=== PATIENT | female | born 1955 | race Caucasian/White ===

== ENCOUNTER 2021-10-25 23:55 | Emergency (ER) | payer BC ==
[~2021-10-25] VITALS: Ht 157.5 cm; Wt 79.4 kg
[2021-10-26] VITALS: BP 161/92
== END 2021-10-26 00:15 | disposition home or self-care (01) ==
LOC: ER 23:58
DX: S60.221A Contusion of right hand, initial encounter (principal); E11.9 Type 2 diabetes mellitus without complications; X58.XXXA Exposure to other specified factors, initial encounter; Y93.89 Activity, other specified; Y92.89 Other specified places as the place of occurrence of the external cause; Y99.8 Other external cause status

== ENCOUNTER 2023-01-17 09:36 | Emergency (ER) | payer BC ==
[~2023-01-17] VITALS: Ht 157.5 cm; Wt 81.2 kg
--- NOTE | 2023-01-17 10:00 | NUR ---
C/O FACE PAIN X 4 DAYS S/P COSMETIC PROCEDURE.
--- NOTE | 2023-01-17 10:15 | NUR ---
DR FLOR AT BEDSIDE FOR EVAL. AWAITING FOR HIS ORDERS
[2023-01-17 11:16] VITALS: BP 130/66
== END 2023-01-17 11:17 | disposition home or self-care (01) ==
LOC: ER 09:39
DX: R51.9 Headache, unspecified (principal); E11.9 Type 2 diabetes mellitus without complications